=== PATIENT | male | born 1960 | race Caucasian/White ===

== ENCOUNTER 2019-05-31 08:41 | Day surgery (SDC) | payer OTHER ==
[~2019-05-31 08:41] MED LIST: Midazolam 1 MG/ML 2 ML SDV ONE; Propofol 200 MG/20 ML SDV ONE
[2019-05-31] MEDS ORDERED: Lactated Ringers 1,000 ML IV SCH (08:45)
[2019-05-31] MEDS ORDERED: Sodium Chloride 0.9% 10 ML Syringe FLUSH PRN (08:45)
--- NOTE | 2019-05-31 09:36 | PCM.PN ---
- General Info Date of Service: 05/31/19 - Review of Systems Systems Review Comment:: 58-year-old male presents for screening colonoscopy. His last colon exam was approximately 10 years ago. He denies any recent changes in bowel pattern. He denies any family history of colon cancer. I have discussed the proposed colonoscopy with the patient. Risks such as but not limited to bleeding and GI injury reviewed. He agrees to proceed. His recent history and physical is reviewed. No significant changes are noted. - Patient Data Vitals - Most Recent: Last Vital Signs Temp 96.2 F L 05/31/19 09:04 Pulse 62 05/31/19 09:04 Resp 20 05/31/19 09:04 BP 133/78 05/31/19 09:04 Pulse Ox 98 05/31/19 09:04 Weight - Most Recent: 95.254 kg Med Orders - Current: Current Medications Lactated Ringer's (Ringers, Lactated) 1,000 mls @ 125 mls/hr IV ASDIRECTED SHIRA Last Admin: 05/31/19 09:26 Dose: 125 mls/hr Sodium Chloride (Saline Flush) 10 ml FLUSH ASDIRECTED PRN PRN Reason: Keep Vein Open Discontinued Medications Midazolam HCl (Versed 1 Mg/Ml) Confirm Administered Dose 2 mg .ROUTE .STK-MED ONE Stop: 05/31/19 08:35 Propofol (Diprivan 20 Ml) Confirm Administered Dose 200 mg .ROUTE .STK-MED ONE Stop: 05/31/19 08:35 Sepsis Event Note - Focused Exam Vital Signs: Vital Signs Temp Pulse Resp BP Pulse Ox 05/31/19 09:04 96.2 F L 62 20 133/78 98 Date Exam was Performed: 05/31/19 Time Exam was Performed: 09:34 - Problem List Review Problem List Initiated/Reviewed/Updated: Yes - My Orders Last 24 Hours: My Active Orders 05/31/19 08:45 Patient Status [ADT] Routine Peripheral IV Care [RC] . DIRECTED Verify Patient Consent Obtain [RC] ASDIRECTED Lactated Ringers [Ringers, Lactated] 1,000 ml IV ASDIRECTED Sodium Chloride 0.9% [Saline Flush] 10 ml FLUSH ASDIRECTED PRN Peripheral IV Insertion Adult [OM.PC] Routine - Assessment Assessment:: colon cancer screening - Plan Plan:: colonoscopy
[2019-05-31] MEDS ORDERED: Midazolam 1 MG/ML 2 ML SDV ONE (09:39)
[2019-05-31] MEDS ORDERED: Propofol 200 MG/20 ML SDV ONE ×2 (09:39→10:37)
--- NOTE | 2019-05-31 10:31 | PCM.OPNOTE ---
- General Post-Op/Procedure Note Date of Surgery/Procedure: 05/31/19 Operative Procedure(s): Colonoscopy with Polypectomy Findings: Multiple small colon polyps Moderate sigmoid diverticulosis Pre Op Diagnosis: colon cancer screening Post-Op Diagnosis: colon polyps. Sigmoid diverticulosis Anesthesia Technique: MAC Primary Surgeon: Maxx Whalen Pathology: multiple colon polyps EBL in mLs: 0 Complications: None Condition: Good
--- NOTE | 2019-05-31 11:26 | OR ---
Date of Procedure: 05/31/2019 PREOPERATIVE DIAGNOSIS: Colon cancer screening. POSTOPERATIVE DIAGNOSIS: Colon polyps, sigmoid diverticulosis. OPERATIONS PERFORMED: Colonoscopy with polypectomy. INDICATIONS FOR SURGERY: This 58-year-old male is referred today for a screening colonoscopy. FINDINGS: Multiple polyps were noted on today's exam. There are sessile polyps of 5 to 6 mm in size located at the splenic flexure, transverse colon, and hepatic flexure. There was a cluster of 3 small polyps in the area of the cecum. These are each 3 to 4 mm in size. The patient also has a moderate degree of diverticulosis in the sigmoid colon, which does not appear to be acutely inflamed, or otherwise, complicated. PROCEDURE IN DETAIL: The patient was taken to the operating room. He was given intravenous sedation and with him in the left lateral decubitus position, digital rectal exam was performed showing no rectal masses. The Olympus colonoscope was inserted into the rectum. Retroflexed examination of the rectal canal was performed. The scope was then carefully advanced under direct visualization through the entire length of the colon until cecum was reached. The patient's colon was somewhat tortuous, and in order to reach the cecum, it did require hand pressure on the abdomen as well as moving the patient to the supine position. Eventually with these maneuvers, the cecum was able to be entered and carefully examined. The ileocecal valve and appendiceal orifice were identified. There were 3 small polyps noted in the area of the cecum. Each of these is destroyed with the cautery snare. The scope was then slowly withdrawn carefully re-examining the colonic segments. During insertion and withdrawal of the scope, the other polyps were identified as described above. Those 3 polyps were each removed with a cautery snare and retrieved into a polyp trap. After the colon had been carefully examined and with no sign of any complication, the scope was then removed and the patient was taken from the operating room in satisfactory condition. ESTIMATED BLOOD LOSS: 0. COMPLICATIONS: None. PROGNOSIS: Good. CAPRICE Whalen MD /[id number] MTDD
[2019-05-31 14:31] VITALS: PULSE 73
[2019-05-31 14:32] VITALS: BP 119/63
== END 2019-05-31 11:36 | disposition home or self-care (01) ==
LOC: LL.SDS 08:41
PROVIDERS: ATTEND Surgery
DX: Z12.11 Encounter for screening for malignant neoplasm of colon (principal); D12.3 Benign neoplasm of transverse colon; K57.30 Diverticulosis of large intestine without perforation or abscess without bleeding; H60.93 Unspecified otitis externa, bilateral; E78.5 Hyperlipidemia, unspecified; I65.29 Occlusion and stenosis of unspecified carotid artery; R73.03 Prediabetes
CPT/HCPCS: 45385; J2250; J2704; J7120

== ENCOUNTER 2021-08-02 10:53 | Emergency (ER) | payer OTHER ==
[2021-08-02] MEDS: Lidocaine 1% 5 ML VIAL INJECT ONE (11:27)
[2021-08-02] MEDS: Diphtheria,Pertussis(Acell),Tetanus Vaccine 0.5 ML Syringe IM ONE (11:30)
[2021-08-02] MEDS: Ketorolac 30 MG/ML SDV IM ONE (11:31)
[2021-08-02] MEDS: Bacitracin/Neomycin/Polymyxin B Oint 0.9 GM U/D Packet TOP ONE (11:43)
[2021-08-02 18:07] VITALS: BP 159/84; PULSE 72
== END 2021-08-02 12:20 | disposition home or self-care (01) ==
LOC: LL.ED 10:53 → SUPCPDRO 10:53 → LL.ED 12:20
DX: S61.011A Laceration without foreign body of right thumb without damage to nail, initial encounter (principal); M54.50 Low back pain, unspecified; G89.29 Other chronic pain; I25.10 Atherosclerotic heart disease of native coronary artery without angina pectoris; I10 Essential (primary) hypertension; Z90.49 Acquired absence of other specified parts of digestive tract; Z23 Encounter for immunization; W01.0XXA Fall on same level from slipping, tripping and stumbling without subsequent striking against object, initial encounter
CPT/HCPCS: 12001; 90471; 90715; 96372; 99283; J1885

== ENCOUNTER 2023-03-10 08:41 | Day surgery (SDC) | payer BC, OTHER ==
[2023-03-10] MEDS ORDERED: Sodium Chloride 0.9% 10 ML Syringe FLUSH PRN (08:45)
[2023-03-10] MEDS ORDERED: Lactated Ringers 1,000 ML IV SCH (08:45)
[2023-03-10 10:43] VITALS: BP 122/70; PULSE 66
== END 2023-03-10 11:25 | disposition home or self-care (01) ==
LOC: LL.SDS 08:41
PROVIDERS: ATTEND Surgery
DX: Z12.11 Encounter for screening for malignant neoplasm of colon (principal); D12.0 Benign neoplasm of cecum; K21.9 Gastro-esophageal reflux disease without esophagitis; I10 Essential (primary) hypertension; Z79.899 Other long term (current) drug therapy
CPT/HCPCS: 00812; 45385; 82947; J2250; J2704; J7120

== ENCOUNTER 2024-10-23 18:58 | Emergency (ER) | payer BC, MEDICARE ==
[2024-10-23 19:44] VITALS: BP 172/78; PULSE 84
[2024-10-23] MEDS: Bacitracin Oint 1 GM U/D Packet TOP ONE ×2 (19:44→19:52)
== END 2024-10-23 19:50 | disposition home or self-care (01) ==
LOC: LL.ED 18:58
DX: S61.412A Laceration without foreign body of left hand, initial encounter (principal); I10 Essential (primary) hypertension; I25.10 Atherosclerotic heart disease of native coronary artery without angina pectoris; K21.9 Gastro-esophageal reflux disease without esophagitis; Z90.49 Acquired absence of other specified parts of digestive tract; Z79.899 Other long term (current) drug therapy; Z79.84 Long term (current) use of oral hypoglycemic drugs; W26.0XXA Contact with knife, initial encounter
CPT/HCPCS: 12002; 99282; 99283; J2003